=== PATIENT | male | born 1990 | race African-American/Black ===

== ENCOUNTER 2019-08-15 09:47 | Emergency (ER) | payer SELFPAY ==
[~2019-08-15] VITALS: Ht 172.7 cm; Wt 115.2 kg
[2019-08-15] MEDS ORDERED: IBU800 MG PO (11:42)
== END 2019-08-15 11:42 | disposition home or self-care (01) ==
LOC: ED 09:47
DX: M25.552 Pain in left hip (principal); R10.30 Lower abdominal pain, unspecified; R11.2 Nausea with vomiting, unspecified; R10.2 Pelvic and perineal pain; R10.32 Left lower quadrant pain; Z88.0 Allergy status to penicillin; Z88.8 Allergy status to other drugs, medicaments and biological substances; Z88.6 Allergy status to analgesic agent; Z88.4 Allergy status to anesthetic agent; W01.0XXA Fall on same level from slipping, tripping and stumbling without subsequent striking against object, initial encounter; Y93.89 Activity, other specified; Y92.89 Other specified places as the place of occurrence of the external cause; Y99.8 Other external cause status

== ENCOUNTER 2019-08-18 09:59 | Emergency (ER) | payer SELFPAY ==
[~2019-08-18] VITALS: Ht 172.7 cm; Wt 115.2 kg
[~2019-08-18 09:59] MED LIST: IBU800 MG PO
[2019-08-18] MEDS ORDERED: PREDNISONE20 M1 PO (11:37)
== END 2019-08-18 11:20 | disposition home or self-care (01) ==
LOC: ED 09:59
DX: M54.42 Lumbago with sciatica, left side (principal); Z88.0 Allergy status to penicillin; Z88.8 Allergy status to other drugs, medicaments and biological substances; Z88.6 Allergy status to analgesic agent; Z88.4 Allergy status to anesthetic agent

== ENCOUNTER 2019-09-21 08:05 | Emergency (ER) | payer SELFPAY ==
[~2019-09-21] VITALS: Wt 114.3 kg
[~2019-09-21 08:05] MED LIST changes: +PREDNISONE20 M1 PO
[2019-09-21] MEDS ORDERED: PREDNISONE50 MG PO (08:44)
== END 2019-09-21 08:56 | disposition home or self-care (01) ==
LOC: ED 08:05
DX: L25.9 Unspecified contact dermatitis, unspecified cause (principal); Z88.0 Allergy status to penicillin; Z88.8 Allergy status to other drugs, medicaments and biological substances; Z88.6 Allergy status to analgesic agent; Z88.4 Allergy status to anesthetic agent; Z79.899 Other long term (current) drug therapy

== ENCOUNTER 2019-09-24 15:39 | Emergency (ER) | payer OTHER ==
[~2019-09-24] VITALS: Ht 172.7 cm; Wt 114.3 kg
[~2019-09-24 15:39] MED LIST changes: +PREDNISONE50 MG PO
[2019-09-24] MEDS ORDERED: MEDROL DOSEPAK4 MG PO (17:27)
[2019-09-24] MEDS ORDERED: METHOCARBAMOL500 M1 PO (17:27)
== END 2019-09-24 17:37 | disposition home or self-care (01) ==
LOC: ED 15:39
DX: S46.912A Strain of unspecified muscle, fascia and tendon at shoulder and upper arm level, left arm, initial encounter (principal); F17.200 Nicotine dependence, unspecified, uncomplicated; Z88.0 Allergy status to penicillin; Z88.6 Allergy status to analgesic agent; Z88.8 Allergy status to other drugs, medicaments and biological substances; X50.0XXA Overexertion from strenuous movement or load, initial encounter; Y93.89 Activity, other specified; Y92.89 Other specified places as the place of occurrence of the external cause; Y99.0 Civilian activity done for income or pay

== ENCOUNTER 2019-12-11 13:01 | Emergency (ER) | payer SELFPAY ==
[~2019-12-11] VITALS: Ht 172.7 cm; Wt 116.1 kg
[~2019-12-11 13:01] MED LIST changes: +MEDROL DOSEPAK4 MG PO; +METHOCARBAMOL500 M1 PO
== END 2019-12-11 16:00 | disposition home or self-care (01) ==
LOC: ED 13:01
DX: S63.92XA Sprain of unspecified part of left wrist and hand, initial encounter (principal); Z88.0 Allergy status to penicillin; Z88.6 Allergy status to analgesic agent; Z88.8 Allergy status to other drugs, medicaments and biological substances; X58.XXXA Exposure to other specified factors, initial encounter; Y93.89 Activity, other specified; Y92.89 Other specified places as the place of occurrence of the external cause; Y99.8 Other external cause status

== ENCOUNTER 2019-12-17 06:23 | Emergency (ER) | payer OTHER ==
[~2019-12-17] VITALS: Ht 172.7 cm; Wt 120.2 kg
[2019-12-17 07:42] LABS: BILIRUBIN NEGATIVE (NEGATIVE); BLOOD NEGATIVE (NEGATIVE); CLARITY CLEAR (CLEAR); COLOR YELLOW (YELLOW); GLUCOSE NEGATIVE (NEGATIVE); KETONE NEGATIVE (NEGATIVE); LEUKO ESTERASE NEGATIVE (NEGATIVE); NITRITE NEGATIVE (NEGATIVE); SPECIFIC GRAVITY 1.025 (1.005-1.030); UROBILINOGEN 0.2 E.U./dl (0.2-1.0)
[2019-12-17 07:49] LABS: RBC 0-2 rbc/hpf (0-2)
[2019-12-17] MEDS ORDERED: TYLENOL325 M1 PO (08:02)
[2019-12-17] MEDS ORDERED: MEDROL DOSEPAK4 MG PO (08:02)
[2019-12-17] MEDS ORDERED: CYCLOBENZAPRINE10 MG PO (08:02)
== END 2019-12-17 08:08 | disposition home or self-care (01) ==
LOC: ED 06:23
PROVIDERS: Emergency Medicine
DX: M54.5 Low back pain (principal); R20.0 Anesthesia of skin; R19.4 Change in bowel habit; Z88.0 Allergy status to penicillin; Z88.8 Allergy status to other drugs, medicaments and biological substances; Z88.6 Allergy status to analgesic agent; Z88.4 Allergy status to anesthetic agent; Z79.899 Other long term (current) drug therapy; Z87.891 Personal history of nicotine dependence

== ENCOUNTER 2020-07-11 14:47 | Emergency (ER) | payer SELFPAY ==
[~2020-07-11] VITALS: Ht 243.8 cm; Wt 119.3 kg
[~2020-07-11 14:47] MED LIST changes: +CYCLOBENZAPRINE10 MG PO; +TYLENOL325 M1 PO
== END 2020-07-11 17:40 | disposition home or self-care (01) ==
LOC: ED 14:47
DX: M25.561 Pain in right knee (principal); Z88.0 Allergy status to penicillin; Z88.8 Allergy status to other drugs, medicaments and biological substances; Z79.899 Other long term (current) drug therapy

== ENCOUNTER 2020-12-15 14:00 | Emergency (ER) | payer BC ==
[~2020-12-15] VITALS: Ht 172.7 cm; Wt 117.9 kg
== END 2020-12-15 17:10 | disposition home or self-care (01) ==
LOC: ED 14:00
DX: M25.561 Pain in right knee (principal); R53.1 Weakness; Z88.0 Allergy status to penicillin; Z88.6 Allergy status to analgesic agent; Z88.8 Allergy status to other drugs, medicaments and biological substances; Z88.4 Allergy status to anesthetic agent; X58.XXXA Exposure to other specified factors, initial encounter; Y93.89 Activity, other specified; Y92.89 Other specified places as the place of occurrence of the external cause; Y99.8 Other external cause status

== ENCOUNTER 2021-03-29 06:32 | Emergency (ER) | payer BC ==
[~2021-03-29] VITALS: Ht 172.7 cm; Wt 116.1 kg
== END 2021-03-29 09:25 | disposition left against medical advice (07) ==
LOC: ED 06:32
DX: M25.569 Pain in unspecified knee (principal); Z53.21 Procedure and treatment not carried out due to patient leaving prior to being seen by health care provider

== ENCOUNTER 2021-05-20 12:44 | Emergency (ER) | payer SELFPAY ==
[~2021-05-20] VITALS: Wt 121.1 kg
== END 2021-05-20 14:49 | disposition home or self-care (01) ==
LOC: ED 12:44
DX: M72.2 Plantar fascial fibromatosis (principal); Z88.0 Allergy status to penicillin; Z88.6 Allergy status to analgesic agent

== ENCOUNTER 2021-07-21 14:48 | Emergency (ER) | payer SELFPAY ==
[~2021-07-21] VITALS: Wt 121.1 kg
[2021-07-21] MEDS ORDERED: NAPROSYN500 MG PO (19:38)
== END 2021-07-21 19:46 | disposition home or self-care (01) ==
LOC: ED 14:48
DX: S89.82XA Other specified injuries of left lower leg, initial encounter (principal); M70.52 Other bursitis of knee, left knee; Z88.0 Allergy status to penicillin; Z88.8 Allergy status to other drugs, medicaments and biological substances; X50.1XXA Overexertion from prolonged static or awkward postures, initial encounter; Y93.89 Activity, other specified; Y92.89 Other specified places as the place of occurrence of the external cause; Y99.8 Other external cause status

== ENCOUNTER 2021-07-26 16:01 | Emergency (ER) | payer SELFPAY ==
[~2021-07-26] VITALS: Ht 172.7 cm; Wt 121.1 kg
[~2021-07-26 16:01] MED LIST changes: +NAPROSYN500 MG PO
[2021-07-26] MEDS ORDERED: HYDROCODONE-AC1 EAC1 PO (17:51)
== END 2021-07-26 18:25 | disposition home or self-care (01) ==
LOC: ED 16:01
DX: S89.82XD Other specified injuries of left lower leg, subsequent encounter (principal); Z88.0 Allergy status to penicillin; Z88.6 Allergy status to analgesic agent; Z88.8 Allergy status to other drugs, medicaments and biological substances; X58.XXXD Exposure to other specified factors, subsequent encounter

== ENCOUNTER 2021-08-11 21:48 | Emergency (ER) | payer SELFPAY ==
[~2021-08-11] VITALS: Ht 172.7 cm; Wt 122.5 kg
[~2021-08-11 21:48] MED LIST changes: +HYDROCODONE-AC1 EAC1 PO
[2021-08-12 01:40] LABS: BASO % 0.1 % (0.0-1.0); EOS # 0.1 10*3/uL (0.0-0.4); EOS % 0.7 % (1.0-4.0); HEMATOCRIT 36.6 % (42.0-52.0); LYMPH % 22.3 % (27.0-41.0); MEAN CELL VOLUME 85.1 fl (80.0-94.0); MEAN CORPUSCULAR HGB 28.1 pg (27.0-31.0); MEAN CORPUSCULAR HGB CONC 33.1 g/dl (33.0-37.0); MEAN PLATELET VOLUME 8.9 fl (9.6-12.3); MONO # 1.1 10*3/uL (0.1-1.0); MONO % 8.1 % (3.0-9.0); NEUT # 9.4 10*3/uL (2.3-7.9); NEUT % 68.5 % (47.0-73.0); PLATELET COUNT AUTOMATED 445 10*3/uL (130-400); RED CELL DISTRI WIDTH 13.7 % (0-14.5); WHITE BLOOD COUNT 13.7 10*3/uL (4.8-10.8)
== END 2021-08-12 03:30 | disposition home or self-care (01) ==
LOC: ED 21:48
PROVIDERS: Internal Medicine
DX: M25.462 Effusion, left knee (principal); D72.829 Elevated white blood cell count, unspecified; Z88.0 Allergy status to penicillin; Z88.8 Allergy status to other drugs, medicaments and biological substances

== ENCOUNTER → 2021-08-23 | Outpatient (CLI) | payer MEDICAID ==
[2021-08-23 10:05] LABS: BASO % 0.2 % (0.0-1.0); EOS # 0.1 10*3/uL (0.0-0.4); EOS % 0.9 % (1.0-4.0); HEMATOCRIT 40.3 % (42.0-52.0); LYMPH # 2.7 10*3/uL (1.3-4.4); MEAN CELL VOLUME 86.1 fl (80.0-94.0); MEAN CORPUSCULAR HGB 27.8 pg (27.0-31.0); MEAN CORPUSCULAR HGB CONC 32.3 g/dl (33.0-37.0); MEAN PLATELET VOLUME 9.1 fl (9.6-12.3); MONO # 0.7 10*3/uL (0.1-1.0); NEUT # 6.5 10*3/uL (2.3-7.9); NEUT % 64.3 % (47.0-73.0); PLATELET COUNT AUTOMATED 486 10*3/uL (130-400); RED BLOOD COUNT 4.68 10*6/uL (4.50-5.90); RED CELL DISTRI WIDTH 13.8 % (0-14.5); WHITE BLOOD COUNT 10.1 10*3/uL (4.8-10.8)
[2021-08-23 10:41] LABS: ALBUMIN 3.5 gm/dl (3.1-4.5); ALKALINE PHOSPHATASE 80 U/L (45-117); BUN 20 mg/dl (7-24); CHLORIDE 111 mmol/L (98-107); CREATININE 1.01 mg/dL (0.70-1.30); POTASSIUM 3.6 mmol/L (3.5-5.1); SGOT/AST 61 IU/L (3-35); SGPT/ALT 46 U/L (12-78); SODIUM 141 mmol/L (136-145); TOTAL PROTEIN 8.4 gm/dL (6.4-8.2)
== END | disposition home or self-care (01) ==
LOC: LAB 09:41
PROVIDERS: Family Medicine; ATTEND Family Medicine
DX: M00.9 Pyogenic arthritis, unspecified (principal)

== ENCOUNTER 2021-11-25 10:58 | Emergency (ER) | payer OTHER ==
[~2021-11-25] VITALS: Ht 172.7 cm; Wt 119.3 kg
[2021-11-26] MEDS ORDERED: NAPROSYN500 MG PO (09:00)
== END 2021-11-25 12:15 | disposition left against medical advice (07) ==
LOC: ED 10:58
DX: Z53.21 Procedure and treatment not carried out due to patient leaving prior to being seen by health care provider (principal)

== ENCOUNTER 2021-11-26 08:13 | Emergency (ER) | payer OTHER ==
[~2021-11-26] VITALS: Ht 172.7 cm; Wt 119.3 kg
[2021-11-26] MEDS ORDERED: NAPROSYN500 MG PO (09:00)
== END 2021-11-26 09:23 | disposition home or self-care (01) ==
LOC: ED 08:13
DX: M25.562 Pain in left knee (principal); Z88.0 Allergy status to penicillin; Z88.8 Allergy status to other drugs, medicaments and biological substances; Z88.6 Allergy status to analgesic agent; Z88.4 Allergy status to anesthetic agent; Z79.899 Other long term (current) drug therapy

== ENCOUNTER 2021-12-01 10:35 | Emergency (ER) | payer OTHER | END 2021-12-01 11:00 | disposition left against medical advice (07) | LOC: ED 10:35 | DX: Z53.21 Procedure and treatment not carried out due to patient leaving prior to being seen by health care provider (principal) ==

== ENCOUNTER 2022-01-02 14:27 | Emergency (ER) | payer OTHER ==
[~2022-01-02] VITALS: Ht 187.9 cm; Wt 136.1 kg
[2022-01-02 14:57] LABS: BASO % 0.3 % (0.0-1.0); EOS # 0.1 10*3/uL (0.0-0.4); EOS % 0.8 % (1.0-4.0); HEMATOCRIT 43.7 % (42.0-52.0); LYMPH # 2.2 10*3/uL (1.3-4.4); LYMPH % 30.3 % (27.0-41.0); MEAN CELL VOLUME 82.5 fl (80.0-94.0); MEAN CORPUSCULAR HGB 27.7 pg (27.0-31.0); MEAN CORPUSCULAR HGB CONC 33.6 g/dl (33.0-37.0); MEAN PLATELET VOLUME 9.1 fl (9.6-12.3); MONO # 0.5 10*3/uL (0.1-1.0); MONO % 6.3 % (3.0-9.0); NEUT # 4.6 10*3/uL (2.3-7.9); NEUT % 61.9 % (47.0-73.0); PLATELET COUNT AUTOMATED 324 10*3/uL (130-400); RED CELL DISTRI WIDTH 14.5 % (0-14.5); WHITE BLOOD COUNT 7.4 10*3/uL (4.8-10.8)
[2022-01-02 15:11] LABS: ACT PARTIAL THROMBO TIME 29.8 SECONDS (20.0-32.1)
[2022-01-02 15:14] LABS: ALBUMIN 3.6 gm/dl (3.1-4.5); ALKALINE PHOSPHATASE 76 U/L (45-117); BUN 12 mg/dl (7-24); CHLORIDE 107 mmol/L (98-107); CPK 276 U/L (39-308); CREATININE 0.99 mg/dL (0.70-1.30); POTASSIUM 4.3 mmol/L (3.5-5.1); SGOT/AST 31 IU/L (3-35); SGPT/ALT 34 U/L (12-78); SODIUM 140 mmol/L (136-145); TOTAL PROTEIN 8.1 gm/dL (6.4-8.2)
[2022-01-02] MEDS ORDERED: TYLENOL325 M1 PO (17:42)
== END 2022-01-02 18:28 | disposition home or self-care (01) ==
LOC: ED 14:27
PROVIDERS: Emergency Medicine
DX: R07.89 Other chest pain (principal); Z88.0 Allergy status to penicillin; Z88.8 Allergy status to other drugs, medicaments and biological substances

== ENCOUNTER 2022-06-07 16:36 | Emergency (ER) | payer OTHER ==
[~2022-06-07] VITALS: Wt 121.1 kg
== END 2022-06-08 04:02 | disposition home or self-care (01) ==
LOC: ED 16:36
DX: S93.402A Sprain of unspecified ligament of left ankle, initial encounter (principal); Z88.0 Allergy status to penicillin; Z88.8 Allergy status to other drugs, medicaments and biological substances; X50.9XXA Other and unspecified overexertion or strenuous movements or postures, initial encounter; Y93.89 Activity, other specified; Y92.89 Other specified places as the place of occurrence of the external cause; Y99.8 Other external cause status

== ENCOUNTER 2024-11-25 12:00 | Emergency (ER) | payer BC ==
[~2024-11-25] VITALS: Ht 172.7 cm; Wt 136.1 kg
[2024-11-25] MEDS ORDERED: Acetaminophen/Hydrocodone 5 MG/325 MG TABLET PO ONE (12:20)
== END 2024-11-25 14:52 | disposition home or self-care (01) ==
LOC: ED 12:00
DX: S93.691A Other sprain of right foot, initial encounter (principal); Z88.0 Allergy status to penicillin; Z88.8 Allergy status to other drugs, medicaments and biological substances; Z98.890 Other specified postprocedural states; X50.1XXA Overexertion from prolonged static or awkward postures, initial encounter; Y93.64 Activity, baseball; Y92.39 Other specified sports and athletic area as the place of occurrence of the external cause; Y99.8 Other external cause status

== ENCOUNTER → 2024-12-03 | Outpatient (CLI) | payer BC | END | disposition home or self-care (01) | LOC: MRI 00:55 | PROVIDERS: ATTEND Orthopaedic Surgery | DX: S86.311A Strain of muscle(s) and tendon(s) of peroneal muscle group at lower leg level, right leg, initial encounter (principal); M19.071 Primary osteoarthritis, right ankle and foot; M72.2 Plantar fascial fibromatosis; X58.XXXA Exposure to other specified factors, initial encounter; Y93.89 Activity, other specified; Y92.89 Other specified places as the place of occurrence of the external cause; Y99.8 Other external cause status ==